=== PATIENT | female | born 1990 | race American Indian/Alaskan Native ===

== ENCOUNTER 2017-12-01 12:12 | Emergency (ER) | payer BC, OTHER ==
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
[2017-12-01] MEDS ORDERED: TYLENOL PO ONE (15:41)
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
[2017-12-01 17:25] VITALS: BP 118/68
== END 2017-12-01 17:23 | disposition home or self-care (01) ==
LOC: ED 12:12
DX: O26.892 Other specified pregnancy related conditions, second trimester (principal); S16.1XXA Strain of muscle, fascia and tendon at neck level, initial encounter; R51 Headache; Z3A.22 22 weeks gestation of pregnancy; V89.2XXA Person injured in unspecified motor-vehicle accident, traffic, initial encounter; Y93.89 Activity, other specified; Y92.488 Other paved roadways as the place of occurrence of the external cause; Y99.8 Other external cause status
CPT/HCPCS: 72040; 99283